=== PATIENT | female | born 1995 | race Caucasian/White ===

== ENCOUNTER → 2016-12-14 | Outpatient (CLI) | payer BC ==
[~2016-12-14] MED LIST: [UNRECOGNIZED DRUG - OTHER] PO
[2016-12-17 07:30] LABS: HEPATITIS BE ANTIBODY TC 556 Nonreactive; VARICELLA ZOS VIR IGG VALUE 1.06 INDEX
== END | disposition home or self-care (01) ==
LOC: C.LABPVFM 13:22
PROVIDERS: ATTEND Nurse Practitioner Family
DX: Z02.0 Encounter for examination for admission to educational institution (principal)

== ENCOUNTER → 2017-02-24 | Outpatient (CLI) | payer BC ==
[2017-02-24 17:37] LABS: BASO % 0.3 %; BASO ABS # 0.03 K/uL (0-0.2); COMPLETE YES; EOS % 1.3 %; IG% 0.2 %; LYMPH % 36.1 %; LYMPH ABS # 3.45 K/uL (1.2-3.4); MEAN CELL VOLUME 82.5 fL (80-100); MEAN CORPUSCULAR HEMOGLOBIN 27.4 pg (25-34); MEAN CORPUSCULAR HGB CONC 33.3 g/dl (32-36); MEAN PLATELET VOLUME 9.2 fL (7.4-10.4); NEUT % 53.1 %; PLATELET COUNT 357 K/uL (130-400); RED BLOOD COUNT 4.85 M/uL (4.2-5.4); WHITE BLOOD COUNT 9.56 K/uL (4.8-10.8)
[2017-02-24 18:02] LABS: ALT/SGPT 19 U/L (12-78); AST/SGOT 12 U/L (15-37); BLOOD UREA NITROGEN 15 mg/dl (7-18); BUN/CREATININE RATIO 19.2 (10-20); CALCIUM 9.1 mg/dl (8.5-10.1); CARBON DIOXIDE 27 mmol/L (21-32); CHLORIDE 106 mmol/L (98-107); CREATININE 0.79 mg/dl (0.60-1.20); GLUCOSE 88 mg/dl (70-99); POTASSIUM 4.1 mmol/L (3.5-5.1); SODIUM 139 mmol/L (136-145)
[2017-02-24 18:13] LABS: ALB/GLOB RATIO 0.8 (0.9-2); ALKALINE PHOSPHATASE 83 U/L (45-117)
--- NOTE | 2017-03-02 12:27 | CODING QUERY MEDICAL NECESSITY ---
CQSUPPORTING DIAGNOSIS NEEDED A supporting diagnosis is required for the test/procedure performed on this patient in order for us to be reimbursed by the patient's insurance. Please provide a supporting diagnosis for the following test/procedure listed below next to the test name along with your signature. *If there is no additional diagnosis for this patient that would support the following test/procedure please document that below next to the test/procedure. Test(s)/Procedure(s) that require a supporting diagnosis: DOS [id number] VITAIN D VITAMIN B12 Provider Signature: Date: Thank you Rosangela Hackett [facility] Information Management Once completed, please kindly fax back to [phone] For questions please call [phone]
== END | disposition home or self-care (01) ==
LOC: C.LABPVFM 16:02
PROVIDERS: ATTEND Neuromusculoskeletal Medicine & OMM
DX: Z00.00 Encounter for general adult medical examination without abnormal findings (principal); R53.83 Other fatigue; R06.83 Snoring

== ENCOUNTER → 2017-08-09 | Outpatient (CLI) | payer BC ==
--- NOTE | 2017-08-09 14:49 | DIAGNOSTIC IMAGING REPORT ---
R FOOT MIN 3 VIEWS CLINICAL HISTORY: Right foot pain. No known injury. COMPARISON: None FINDINGS: Alignment of the right foot is anatomic. The tarsometatarsal joints are intact. No fracture is identified. No osseous lesion is noted. There is no radiographic evidence of a stress fracture. No erosions are identified. IMPRESSION: No significant abnormality within the right foot. Electronically signed by: Roney Varela M.D. 08/09/2017 2:48 PM Dictated Date/Time: 08/09/2017 2:45 PM
== END | disposition home or self-care (01) ==
LOC: C.RDSM 16:22
PROVIDERS: ATTEND Family Medicine
DX: M79.671 Pain in right foot (principal)

== ENCOUNTER → 2017-10-22 | Outpatient (CLI) | payer BC | END | disposition home or self-care (01) | LOC: C.LABPVFM 09:13 | PROVIDERS: ATTEND Family Medicine Adult Medicine | DX: L50.9 Urticaria, unspecified (principal) ==

== ENCOUNTER 2021-04-14 16:30 | Inpatient (IN) ==
--- NOTE | 2021-04-08 17:13 | History and Physical Report ---
DATE OF ADMISSION: 04/17/2021 CHIEF COMPLAINT: Twin intrauterine , previous . HISTORY OF PRESENT ILLNESS: The patient is a 25-year-old 2, para 1. She conceived on Clomid 100 mg daily, day #3 to day #7, was diagnosed in the first trimester with a twin intrauterine . She had her first ultrasound done on 09/24/2020, at which time she had a twin intrauterine of 8 weeks 6 days. Her due date is 04/30/2021. Her obstetrical history is as follow; 4 years ago, she had a long labor and a for cephalopelvic disproportion. Presently being followed in the office, has had several ultrasounds. Initially, the twins were transverse. Within the past month, they have converted both to vertex-vertex presentation. She has recently been experiencing some edema of the lower abdomen and presently being scheduled for a repeat low segment section for twins. ALLERGIES: SHE IS ALLERGIC TO CECLOR, WHICH GIVES HER HIVES. PAST SURGICAL HISTORY: She had a 4 years ago for cephalopelvic disproportion. She has wisdom teeth removed. SOCIAL HISTORY: No smoking. No excessive alcohol intake. Works at [employer]. FAMILY HISTORY: She has a girl, 4 years old. Mother is 40 in good health. Father 46, has diabetes and high blood pressure. She has got 5 half-brothers and sisters are all in good health. REVIEW OF SYSTEMS: HEAD: No symptoms of frequent or severe headaches. EYES: No symptoms of blurred vision or double vision. EARS: No symptoms of frequent ear infection or difficulty hearing. NOSE: No symptoms of frequent nosebleeds or difficulty breathing through her nose. PHYSICAL EXAMINATION: GENERAL: Well-developed, well-nourished 25-year-old white female, alert, oriented x3 and cooperative, in no acute distress, appeared her stated age. EYES: Conjunctivae are pink. Sclerae white, no evidence of jaundice. EARS: Had normal light reflex bilaterally. NOSE: Had normal mucosa. Septum is midline. There were no polyps. THROAT: No erythema or evidence of infection. Teeth are in good state of repair. HEAD: Normocephalic, normal distribution of hair. NECK: Supple. Trachea midline. Thyroid is not enlarged. There is no adenopathy appreciated. Both carotids are of good intensity. CHEST: Clear to auscultation and percussion. No wheezes, rales or rhonchi appreciated. BREASTS: Normal. ABDOMEN: Revealed a well-healed Pfannenstiel incision. There were some pitting edema of the lower abdomen. Uterine size was about 44 cm above the pubic symphysis consistent with twins. No CVA tenderness. MUSCULOSKELETAL: No calf tenderness. PELVIC: Cervix is 3-4 cm dilated, vertex presentation. IMPRESSIONS OF THIS CASE: section for cephalopelvic disproportion, status post removal of wisdom teeth and twin intrauterine in vertex-vertex presentation.
[2021-04-14] MEDS ORDERED: LACTATED RINGER'S 1,000 ML IV SCH (17:45)
[2021-04-14] MEDS ORDERED: CITRIC ACID/SODIUM CITRATE 15 ML UDC PO ONE (18:00)
[2021-04-14] MEDS ORDERED: cefOXitin 2,000 MG in DEXTROSE 5% 50 ML IV ONE (18:00)
[2021-04-14] MEDS ORDERED: LACTATED RINGER'S 500 ML IV PRN (18:30)
[2021-04-14] MEDS ORDERED: DC INTRASPINAL MORPHINE SCH (18:30)
[2021-04-14] MEDS ORDERED: ePHEDrine sulfate 50 MG/ML AMP IV PRN (18:30)
[2021-04-14] MEDS ORDERED: NO NARCOTICS OR SEDATIVES SCH (18:30)
[2021-04-14] MEDS ORDERED: HYDROmorphone INJ 0.5 MG/0.5 ML SYR IV PRN (18:30)
[2021-04-14] MEDS ORDERED: NALOXONE HCL 0.08 MG in SYRINGE 1.8 ML IV PRN (18:30)
[2021-04-14] MEDS ORDERED: MoRPHine SULFATE PF 1 MG/ML 10 ML AMP/VIAL INT SPINAL ONE (18:30)
[2021-04-14] MEDS ORDERED: SODIUM CHLORIDE 0.9% 1000ML 1,000 ML IV SCH (18:30)
[2021-04-14] MEDS ORDERED: ONDANSETRON INJ 2 MG/ML 2 ML VIAL IV PRN (18:30)
[2021-04-14] MEDS ORDERED: diphenhydrAMINE 50 MG/ML VIAL IV PRN ×2 (18:30→20:19)
[2021-04-14] MEDS ORDERED: NALOXONE HCL 1 MG in SODIUM CHLORIDE 0.9% 1000ML 1,000 ML IV PRN (18:30)
[2021-04-14] MEDS ORDERED: NALOXONE HCL 0.4 MG/1 ML VIAL/CARP IV PRN (18:30)
[2021-04-14 18:41] LABS: Hematocrit (blood only) 32.9 % (37-47); Hemoglobin 10.7 g/dL (12.0-16.0); Mean Corpuscular Hemoglobin 27.1 pg (25-34); Mean Corpuscular Volume 83.3 fL (80-100); Mean Platelet Volume 10.5 fL (7.4-10.4); Platelet Count 273 K/uL (130-400); RDW Coefficient of Variation 15.1 % (11.5-14.5); RDW Standard Deviation 46.2 fL (36.4-46.3); Red Blood Count 3.95 M/uL (4.2-5.4); White Blood Count 15.04 K/uL (4.8-10.8)
--- NOTE | 2021-04-14 18:46 | Anesthesiology Consultation ---
Date of Service April 14, 2021 The patient has an allergy of hives to cefaclor. The nurse checked with both the pharmacist and Dr. Kennedy who stated that the patient is okay to receive cefoxitin. Assessment & Plan Chart Review Chart Review: Acceptable Risk for Surgery and Patient NOT seen in Pre Admission Testing Consults Requested none ASA ASA2 Proposed Anesthesia Anesthesia Type: MAC Spinal Risk / Benefits Reviewed With: PT / POA / Parent / Guardian, Accepts Plan and Informed Consent Obtained History Surgery Operation Date: 04/14/21 19:00 Proposed Procedures p Section in LD(Bilateral) - Jeanmarie Kennedy MD Height/Weight Height: 5 ft 2.5 in Weight: 104.78 kg Allergies Allergy/AdvReac Type Severity Reaction Status Date / Time cefaclor Allergy Intermediate HIVES Verified 04/08/21 16:11 Medications Home Medications Medication Instructions Recorded Confirmed Last Taken prenat.vits,amador,pya-rtng-aoesp 1 tab PO DAILY 10/23/20 04/14/21 04/13/21 20:00 [ #2] acetaminophen [Tylenol Extra 1,000 mg PO Q6H PRN 02/23/21 04/14/21 04/12/21 Strength] NPO Date Last Intake of Fluids: 04/14/21 Time Last Intake of Fluids: 17:00 Date Last Intake of Solids: 04/14/21 Time Last Intake of Solids: 12:30 Last Intake of Solids Comment: cristi Past Medical History Medical History Anxiety and depression hx Obesity Exercise / Class Metabolic Activity II 4-5 Yardwork/Stairs/Walk up hill Past Family History Family History Brother Asthma Grandmother (Paternal) Hypertension Mother History of migraine headaches Grandmother (Maternal) History of migraine headaches Aunt History of migraine headaches maternal Other No family history of adverse response to anesthesia Past Surgical History Surgical History delivery delivered x1 H/O wisdom tooth extraction Past Anesthesia History No Hx of Anesthesia Complications and No Family Hx of Anesthesia Complications History of PONV No Hx of PONV and No Hx of Motion Sickness Social History Smoking Status: Never smoker Hx Alcohol Use: No Hx Substance Use: No substance use type: does not use Review of Systems no chest pain or sob Physical Exam Vital Signs Last Vital Signs Temp 36.4 C L 04/14/21 18:11 Pulse 93 H 04/14/21 18:47 Resp 18 04/14/21 18:11 BP 140/85 04/14/21 18:47 Pulse Ox 100 04/14/21 18:46 ENMT Mouth: no TMJ abnormality Thyromental Distance: > or= 3.5 Finger Breadths Mallampati Class: II Neck normal visual inspection Respiratory normal respiratory effort Auscultation: lungs clear to auscultation bilaterally Cardiovascular Rate/Rhythm: regular rate and regular rhythm Musculoskeletal Spine: normal cervical ROM Neurologic moves all extremities Psychiatric Orientation: alert and oriented x 3 Testing Laboratory Results 04/14/21 18:00
[2021-04-14 18:47] LABS: Mean Corpuscular Hgb Conc 32.5 g/dL (32-36)
[2021-04-14] MEDS ORDERED: DIPHTHERIA/TETANUS/PERTUSSIS 0.5 ML SYR/VIAL IM ONE (20:19)
[2021-04-14] MEDS ORDERED: HYDROCORTISONE ACETATE 25 MG SUPP PR PRN (20:19)
[2021-04-14] MEDS ORDERED: SUPERCREAM 0.870% 15 GM JAR EXT PRN (20:19)
[2021-04-14] MEDS ORDERED: SENNA 8.6 MG TAB PO PRN (20:19)
[2021-04-14] MEDS ORDERED: BENZOCAINE 20% AER SPR 82.5 GM CAN EXT PRN (20:19)
[2021-04-14] MEDS ORDERED: MAGNESIUM HYDROXIDE SUSP 30 ML UDC PO PRN (20:19)
--- NOTE | 2021-04-14 20:19 | Post Operative Brief Note ---
Immediate Post Op Note v1 Date of Surgery April 14, 2021 Pre & Post Diagnosis Operation Date: 04/14/21 19:00 Pre-Op Diagnosis: 1. Twins 2. Labor Post-Op Diagnosis: Same as preoperative I identified the patient and participated in the time-out.: Yes Procedure Operation Date: 04/14/21 19:00 Actual Procedures p Section in LD(Bilateral) - Jeanmarie Kennedy MD Surgeon Jeanmarie Kennedy MD Movement Assembly Final Inspector Dr Gallo Estimated Blood Loss 700 Findings Consistent with Post-Op Diagnosis two placentas Specimens two placentas Drains Schulz Catheter Anesthesia Type Spinal Complications none Disposition Accompanied Patient To Recovery: No Disposition: Recovery Room
[2021-04-14] MEDS ORDERED: OXYTOCIN 20 UNITS in D5W AND LACTATED RINGERS 1,000 ML IV SCH (20:30)
[2021-04-14] MEDS: KETOROLAC 30 MG/ML VIAL IV PRN (21:16)
[2021-04-14] MEDS: SIMETHICONE 80 MG CHEW PO SCH (21:29)
--- NOTE | 2021-04-14 22:28 | Anesthesiology Progress Note ---
Date of Service April 14, 2021 Anesthesia Post Procedure Vital Signs Vital Signs: Temp Pulse Resp BP Pulse Ox 04/14/21 22:24 88 145/97 H 99 04/14/21 22:23 88 18 145/97 H 99 04/14/21 22:19 79 99 04/14/21 22:14 80 143/84 H 100 04/14/21 22:09 80 100 04/14/21 22:04 84 136/90 100 04/14/21 22:02 100 H 93 04/14/21 21:59 89 98 04/14/21 21:54 73 153/75 H 100 04/14/21 21:53 75 18 100 04/14/21 21:49 75 100 04/14/21 21:47 82 93 04/14/21 21:44 75 100 04/14/21 21:43 72 144/75 H 04/14/21 21:42 83 91 04/14/21 21:39 80 99 04/14/21 21:34 74 154/80 H 89 L 04/14/21 21:29 96 H 99 04/14/21 21:24 91 H 153/95 H 97 04/14/21 21:23 81 18 91 04/14/21 21:20 81 91 04/14/21 21:19 78 99 04/14/21 21:15 88 90 04/14/21 21:14 88 146/99 H 95 04/14/21 21:13 79 18 146/99 H 04/14/21 21:09 79 100 04/14/21 21:05 74 128/80 04/14/21 21:04 77 100 04/14/21 21:03 74 18 128/80 04/14/21 20:59 75 99 04/14/21 20:54 85 98 04/14/21 20:53 75 20 142/92 H 04/14/21 20:49 80 100 04/14/21 20:44 81 143/84 H 100 04/14/21 20:43 18 04/14/21 20:39 86 100 04/14/21 20:34 92 H 137/86 100 04/14/21 20:33 18 04/14/21 20:29 98 H 100 04/14/21 20:24 91 H 100 04/14/21 20:23 36.4 C L 97 H 20 136/76 04/14/21 18:51 90 100 04/14/21 18:47 93 H 140/85 04/14/21 18:46 92 H 100 04/14/21 18:20 86 141/92 H 04/14/21 18:11 36.4 C L 87 18 141/92 H 04/14/21 17:58 87 141/92 H Pain Intensity Bilateral Abdomen: Pain Intensity: 1 Transfer of Care Handoff Completed per policy Notes Mental Status: alert / awake / arousable Patient Amnestic to Procedure: Yes Nausea / Vomiting: adequately controlled Pain: adequately controlled Airway Patency, RR, SpO2: stable & adequate BP & HR: stable & adequate Hydration State: stable & adequate Neuraxial Anesthesia: was administered and sensory block is resolving Anesthetic Complications: no major complications apparent and Pt Satisfied with anesthetic care
[2021-04-14] MEDS: DOCUSATE SODIUM 100 MG CAP PO SCH (23:08)
[2021-04-15] MEDS ORDERED: LACTATED RINGER'S 1,000 ML IV SCH (04:30)
[2021-04-15 06:32] LABS: Hematocrit (blood only) 28.9 % (37-47); Hemoglobin 9.2 g/dL (12.0-16.0); Mean Corpuscular Hemoglobin 26.5 pg (25-34); Mean Corpuscular Hgb Conc 31.8 g/dL (32-36); Mean Corpuscular Volume 83.3 fL (80-100); Mean Platelet Volume 9.7 fL (7.4-10.4); Platelet Count 225 K/uL (130-400); RDW Coefficient of Variation 15.1 % (11.5-14.5); Red Blood Count 3.47 M/uL (4.2-5.4); White Blood Count 12.64 K/uL (4.8-10.8)
[2021-04-15 07:08] LABS: ALC (manual) 2.64 K/uL (1.2-3.4); ANC (manual) 9.67 K/uL (1.4-6.5); Basophils # (manual) 0.11 K/uL (0-0.2); Basophils % (manual) 0.9 %; Lymphocytes # (manual) 2.64 K/uL (1.2-3.4); Lymphocytes % (manual) 20.9 %; Monocytes # (manual) 0.21 K/uL (0.11-0.59); Monocytes % (manual) 1.7 %; Neutrophils # (manual) 9.67 K/uL (1.4-6.5); Neutrophils % (manual) 76.5 %
[2021-04-15] MEDS: FERROUS SULFATE 325 MG TAB PO SCH (08:01)
[2021-04-15] MEDS: PRENATAL VITAMIN 1 TAB PO SCH (08:01)
[2021-04-15] MEDS: DOCUSATE SODIUM 100 MG CAP PO SCH ×2 (08:01→20:59)
[2021-04-15] MEDS: KETOROLAC 30 MG/ML VIAL IV PRN (08:02)
[2021-04-15] MEDS: SIMETHICONE 80 MG CHEW PO SCH ×4 (08:02→20:59)
--- NOTE | 2021-04-15 08:07 | Operative Report (OR) ---
DATE OF PROCEDURE: 04/14/2021 The patient was admitted with twin intrauterine . PREOPERATIVE DIAGNOSES: Twin intrauterine , vertex-vertex presentation, labor, 37 weeks 5 d ays. INDICATIONS: Twin , vertex-vertex presentation, active labor. PROCEDURE: Repeat low segment section. SURGEON: Leah Kennedy MD ENGAGEMENT MANAGER: Dr. Gallo. ESTIMATED BLOOD LOSS: 700 mL. ANESTHESIA: Spinal. OPERATIVE FINDINGS AND PROCEDURE: The patient was brought to the OR table, correctly identified by a rmband and conversation. Spinal anesthesia was administered. Schulz catheter was inserted. Compress ion stockings were applied. Lower abdomen was painted with an alcohol based sterilizing solution. T he abdomen was taped up to expose the lower uterine segment. Previous scar could be seen on the abdom en and marked with a pen and then I incised over the previous scar. Incision was carried down to the anterior fascia by sharp dissection. Hemostasis was secured by electrocauterization. Fascia was in cised transversely, from the underlying muscle by blunt and sharp dissection. Recti muscle s were in the midline, exposing the peritoneum which was carefully raised and entered. A r etractor was placed into the abdomen and exposed the lower uterine segment, palpated the head. We di d an incision above the vesicouterine fold and pushed the bladder out of the operative field, scored the lower uterine segment and then entered bluntly with scissors. Clear amniotic fluid could be seen coming at this time. Vertex presentation, we delivered the head, delivered the body without difficu lty, suctioned the infant, stripped the cord and then clamped and cut the cord with a single clamp. Second 's head came down. I had to rupture the membranes separately. Once again fluid was cl ear. delivered easily. We stripped the cord, then we clamped the second infant's cord with 2 clamps and suctioned him through the mouth and the nose. Infants were attended to by the pediatrici an who was present and scrubbed at the time of delivery. Following this, cord blood was taken. Both placentas were removed separately without difficulty. Uterine cavity was cleansed with a clean spon ge. The myometrial defect was identified with four ring forceps, 1 at each angle and then one on the top and one on the bottom and the middle. I then did a careful 2-3 layer closure. I approximated t he myometrial layer with a continuous heavy chromic gut suture. I then approximated the fascial laye r over this with a heavy duty Vicryl and then about 3 areas I did an interrupted wodkih-ue-defqg sutu re of Vicryl to finish the approximation of the fascial layer. Following this, hemostasis was excell ent. We did restore the integrity of the vesicouterine fold with a running 3-0 chromic, cleansed the pelvis of all blood clots and debris, reinserted the uterus, tubes, and ovaries into the abdomen, ch ecked to make sure the incision was hemostatic. It was. We cut the sutures. Then, I felt that ther e was a piece of omentum, which was adhered to the undersurface of the previous incision. We cut it away with electrocautery. Then, we did a careful anatomical approximation and approximated the perit oneum with a mattress suture of chromic catgut. Approximated the recti muscles with interrupted figu re-of-eight suture chromic catgut, approximated the fascia with a continuous interlocking suture of V icryl on each side and tied in the midline. Subcutaneous was approximated with running plain. The s kin edges were approximated with staple clips. Job ID: [id number]
--- NOTE | 2021-04-15 09:10 | Obstetrical Progress Note ---
Date of Service April 15, 2021 Assessment & Plan Admission and Anticipated Discharge Date Admission Date: April 14, 2021 Physical Exam Physical Exam: abdomen soft and non tender bowel sounds are present incision is clean and dry no calf tenderness vaginal bleeding scant hgb 9.2 Results & Data ([facility]) Vital Signs (Past 12 Hours) Vital Signs Temp Pulse Pulse Resp BP BP Pulse Ox 04/15/21 07:05 18 96 04/15/21 06:00 18 94 04/15/21 05:00 18 95 04/15/21 04:10 36.8 C 82 18 135/89 99 04/15/21 04:00 18 99 04/15/21 03:00 18 96 04/15/21 02:00 18 97 04/15/21 01:00 18 95 04/15/21 00:05 79 18 125/85 98 04/15/21 00:00 18 98 04/14/21 22:55 36.8 C 79 18 132/82 98 04/14/21 22:41 83 133/83 04/14/21 22:39 83 100 04/14/21 22:34 86 149/93 H 99 04/14/21 22:29 82 97 04/14/21 22:24 88 145/97 H 99 04/14/21 22:23 88 18 145/97 H 99 04/14/21 22:19 79 99 04/14/21 22:14 80 143/84 H 100 04/14/21 22:09 80 100 04/14/21 22:04 84 136/90 100 04/14/21 22:02 100 H 93 04/14/21 21:59 89 98 04/14/21 21:54 73 153/75 H 100 04/14/21 21:53 75 18 100 04/14/21 21:49 75 100 04/14/21 21:47 82 93 04/14/21 21:44 75 100 04/14/21 21:43 72 144/75 H 04/14/21 21:42 83 91 04/14/21 21:39 80 99 04/14/21 21:34 74 154/80 H 89 L 04/14/21 21:29 96 H 99 04/14/21 21:24 91 H 153/95 H 97 04/14/21 21:23 81 18 91 04/14/21 21:20 81 91 04/14/21 21:19 78 99 04/14/21 21:15 88 90 04/14/21 21:14 88 146/99 H 95 04/14/21 21:13 79 18 146/99 H 04/14/21 21:09 79 100
[2021-04-15] MEDS ORDERED: ONDANSETRON INJ 2 MG/ML 2 ML VIAL IV PRN (12:30)
[2021-04-15] MEDS ORDERED: PROMETHAZINE HCL 25 MG in SODIUM CHLORIDE 0.9% 50 ML IV PRN (12:30)
[2021-04-15] MEDS ORDERED: ZOLPIDEM TARTRATE 5 MG TAB PO PRN (12:30)
[2021-04-15] MEDS ORDERED: MEPERIDINE HCL 50 MG/ML CARP IV PRN (12:30)
[2021-04-15] MEDS ORDERED: diphenhydrAMINE 50 MG/ML VIAL IV PRN (12:30)
[2021-04-15] MEDS ORDERED: KETOROLAC 30 MG/ML VIAL IV PRN (12:30)
[2021-04-15] MEDS ORDERED: diphenhydrAMINE Capsule 25 MG CAP PO PRN (12:30)
[2021-04-15] MEDS: IBUPROFEN 600 MG TAB PO PRN ×3 (13:08→22:43)
[2021-04-15] MEDS ORDERED: Nursing to Pharmacy Communication SCH (16:15)
[2021-04-15] MEDS: oxyCODONE/ACETAMINOPHEN 5mg/325mg TAB PO PRN ×2 (17:45→22:43)
--- NOTE | 2021-04-15 19:29 | Anesthesiology Progress Note ---
Date of Service April 15, 2021 Anesthesia Post Procedure Vital Signs Vital Signs: Temp Pulse Pulse Pulse Resp BP BP 04/15/21 15:40 36.6 C 100 H 20 115/81 04/15/21 12:40 36.7 C 91 H 21 04/15/21 11:10 22 04/15/21 10:00 20 04/15/21 09:00 21 04/15/21 07:45 36.7 C 100 H 21 04/15/21 07:05 18 04/15/21 06:00 18 04/15/21 05:00 18 04/15/21 04:10 36.8 C 82 18 135/89 04/15/21 04:00 18 04/15/21 03:00 18 04/15/21 02:00 18 04/15/21 01:00 18 04/15/21 00:05 79 18 125/85 04/15/21 00:00 18 04/14/21 22:55 36.8 C 79 18 132/82 04/14/21 22:41 83 133/83 04/14/21 22:39 83 04/14/21 22:34 86 149/93 H 04/14/21 22:29 82 04/14/21 22:24 88 145/97 H 04/14/21 22:23 88 18 145/97 H 04/14/21 22:19 79 04/14/21 22:14 80 143/84 H 04/14/21 22:09 80 04/14/21 22:04 84 136/90 04/14/21 22:02 100 H 04/14/21 21:59 89 04/14/21 21:54 73 153/75 H 04/14/21 21:53 75 18 04/14/21 21:49 75 04/14/21 21:47 82 04/14/21 21:44 75 04/14/21 21:43 72 144/75 H 04/14/21 21:42 83 04/14/21 21:39 80 04/14/21 21:34 74 154/80 H 04/14/21 21:29 96 H 04/14/21 21:24 91 H 153/95 H 04/14/21 21:23 81 18 04/14/21 21:20 81 04/14/21 21:19 78 06/14/21 21:15 88 04/14/21 21:14 88 146/99 H 04/14/21 21:13 79 18 146/99 H 04/14/21 21:09 79 04/14/21 21:05 74 128/80 04/14/21 21:04 77 04/14/21 21:03 74 18 128/80 04/14/21 20:59 75 04/14/21 20:54 85 04/14/21 20:53 75 20 142/92 H 04/14/21 20:49 80 04/14/21 20:44 81 143/84 H 04/14/21 20:43 18 04/14/21 20:39 86 04/14/21 20:34 92 H 137/86 04/14/21 20:33 18 04/14/21 20:29 98 H 04/14/21 20:24 91 H 04/14/21 20:23 36.4 C L 97 H 20 136/76 BP Pulse Ox 04/15/21 15:40 96 04/15/21 12:40 115/79 97 04/15/21 11:10 98 04/15/21 10:00 96 04/15/21 09:00 97 04/15/21 07:45 130/86 96 04/15/21 07:05 96 04/15/21 06:00 94 04/15/21 05:00 95 04/15/21 04:10 99 04/15/21 04:00 99 04/15/21 03:00 96 04/15/21 02:00 97 04/15/21 01:00 95 04/15/21 00:05 98 04/15/21 00:00 98 04/14/21 22:55 98 04/14/21 22:41 04/14/21 22:39 100 04/14/21 22:34 99 04/14/21 22:29 97 04/14/21 22:24 99 04/14/21 22:23 99 04/14/21 22:19 99 04/14/21 22:14 100 04/14/21 22:09 100 04/14/21 22:04 100 04/14/21 22:02 93 04/14/21 21:59 98 04/14/21 21:54 100 04/14/21 21:53 100 04/14/21 21:49 100 04/14/21 21:47 93 04/14/21 21:44 100 04/14/21 21:43 04/14/21 21:42 91 04/14/21 21:39 99 04/14/21 21:34 89 L 04/14/21 21:29 99 04/14/21 21:24 97 04/14/21 21:23 91 04/14/21 21:20 91 04/14/21 21:19 99 04/14/21 21:15 90 04/14/21 21:14 95 04/14/21 21:13 04/14/21 21:09 100 04/14/21 21:05 04/14/21 21:04 100 04/14/21 21:03 04/14/21 20:59 99 04/14/21 20:54 98 04/14/21 20:53 04/14/21 20:49 100 04/14/21 20:44 100 04/14/21 20:43 04/14/21 20:39 100 04/14/21 20:34 100 04/14/21 20:33 04/14/21 20:29 100 04/14/21 20:24 100 04/14/21 20:23 Pain Intensity Bilateral Abdomen: Pain Intensity: 1 Transfer of Care Handoff Completed per policy Notes Mental Status: alert / awake / arousable and participated in evaluation Nausea / Vomiting: adequately controlled Pain: adequately controlled Airway Patency, RR, SpO2: stable & adequate BP & HR: stable & adequate Hydration State: stable & adequate Neuraxial Anesthesia: was administered and sensory block resolved Anesthetic Complications: no major complications apparent and Pt Satisfied with anesthetic care
[2021-04-15] MEDS ORDERED: bisacodyL 5 MG TABEC PO SCH (20:00)
[2021-04-16] MEDS: oxyCODONE/ACETAMINOPHEN 5mg/325mg TAB PO PRN ×3 (03:50→11:55)
[2021-04-16] MEDS: IBUPROFEN 600 MG TAB PO PRN ×3 (03:50→11:54)
--- NOTE | 2021-04-16 06:37 | Obstetrical Progress Note ---
Date of Service April 16, 2021 Assessment & Plan Admission and Anticipated Discharge Date Admission Date: April 14, 2021 Physical Exam Physical Exam: abdomen soft and non tender incision is clean and dry passing flatus no calf tenderness ambulating well vaginal bleeding scant hgb 9.2 Results & Data ([facility]) Vital Signs (Past 12 Hours) Vital Signs Temp Pulse Resp BP BP Pulse Ox 04/15/21 23:00 36.4 C L 84 18 121/68 97 04/15/21 19:27 36.4 C L 90 18 111/72 97
[2021-04-16 06:55] LABS: Hematocrit (blood only) 25.4 % (37-47); Hemoglobin 8.5 g/dL (12.0-16.0)
[2021-04-16] MEDS: DOCUSATE SODIUM 100 MG CAP PO SCH (07:16)
[2021-04-16] MEDS: SIMETHICONE 80 MG CHEW PO SCH ×2 (07:16→12:19)
[2021-04-16] MEDS: PRENATAL VITAMIN 1 TAB PO SCH (07:16)
[2021-04-16] MEDS: FERROUS SULFATE 325 MG TAB PO SCH (07:16)
--- NOTE | 2021-04-16 11:19 | Discharge Summary (DS) ---
DATE OF DISCHARGE: 04/16/2021. HOSPITAL COURSE: She is a 2, para 3. Blood type is O positive, group B strep negative. She is followed in our office for care and delivery, had a previous for cephalopelvic disproportion. She was diagnosed earlier in her with twin gestation. She was carefully f ollowed in the office. She had several ultrasounds, initially the twins were in transverse position. They later converted to vertex-vertex and she did well at 37 weeks and 5 days gestation. She went into spontaneous labor, called the office, she has been having contractions every 5-10 minutes for se veral hours, and came to maternity and was placed on the monitor, was documented to have a good labor pattern with painful contractions. She was diagnosed as being in labor and underwent repeat low seg ment section. Surgery was performed without difficulty. Blood loss at the time was about 7 00 mL. Her preoperative hemoglobin was 10.7. Postoperatively, hemoglobin fell to 9.2. Postoperative ly, she did well. Her bowel sounds returned within 24 hours. The bandage was removed. Incision rem ained clean and dry. On the second postoperative day, she was ambulating well, eating well and reque sted discharge. She was discharged with the usual instructions given prescriptions for Pe rcocet and Motrin and told to return to the office for removal of the frankie and to call if she had any problems. Job ID: [id number]
[2021-04-16] MEDS ORDERED: bisacodyL 10 MG SUPP PR PRN (20:19)
== END 2021-04-16 13:00 | disposition home or self-care (01) | DRG 788 ==
LOC: OPB 16:30 → 4S1 17:38 → 4S2 23:15

== ENCOUNTER 2022-09-14 05:33 | Inpatient (IN) ==
--- NOTE | 2022-09-08 13:54 | Anesthesiology Consultation ---
Date of Service September 08, 2022 Assessment & Plan (1) Encounter for pre-operative examination: COVID screening: Per assessment on 09/08: No known COVID-19 positive contacts. Travel screen negative. Patient vaccinated. Patient has symptoms of fever, cough, congestion/runny nose. Patient had Covid test done 09/07 which was negative (her daughter tested positive for influenza 09/07). Patient seen by Dr. Kennedy 09/08/22- per his note "She did end up with a cough and a low-grade fever. One of her children tested positive for influenza. Her symptoms started on 09/05/2022.. Clear to auscultation and percussion. No wheezes, rales or rhonchi appreciated." OB wishes to proceed with as scheduled 09/14/22. Will contact patient for symptoms update in a few days. Chart Review Chart Review: entry level staff accountant initiated History Surgery Operation Date: 09/14/22 07:30 Proposed Procedures p Repeat Section in LD - Jeanmarie Buffy Kennedy MD Height/Weight Height: 5 ft 2 in Weight: 98.883 kg Allergies Allergy/AdvReac Type Severity Reaction Status Date / Time cefaclor Allergy Intermediate HIVES Verified 09/08/22 13:10 Medications Home Medications Medication Instructions Recorded Confirmed Last Taken vit no.95-ferrous 1 tab PO QPM 09/08/22 09/08/22 Unknown fumarate 28 mg-folic acid 800 mcg tablet () Past Medical History Medical History Anxiety and depression History of COVID-19 06/03/2022- fatigue, fever, nausea, SOB, runny nose, cough Obesity Past Family History Family History Brother Asthma Grandmother (Paternal) Hypertension Mother History of migraine headaches Grandmother (Maternal) History of migraine headaches Aunt History of migraine headaches maternal Other No family history of adverse response to anesthesia Past Surgical History Surgical History delivery delivered x2 H/O wisdom tooth extraction Social History Smoking Status: Never smoker Do You Dip or Chew Tobacco: No Hx Alcohol Use: No Hx Substance Use: No substance use type: does not use
[2022-09-14] MEDS ORDERED: LACTATED RINGER'S 1,000 ML IV SCH ×2 (05:45→09:15)
[2022-09-14] MEDS ORDERED: cefOXitin 2,000 MG in DEXTROSE 5% 50 ML IV SCH (06:00)
[2022-09-14] MEDS ORDERED: CITRIC ACID/SODIUM CITRATE 15 ML UDC PO SCH (06:00)
[2022-09-14] MEDS ORDERED: SODIUM CHLORIDE 0.9% 250 ML IV PRN (06:01)
[2022-09-14] MEDS ORDERED: FLUARIX QUADRIVALENT 0.5 ML SYR IM ONE (06:01)
[2022-09-14 06:22] LABS: Basophils # (auto) 0.06 K/uL (0-0.2); Basophils % (auto) 0.5 %; Eosinophils # (auto) 0.03 K/uL (0-0.50); Eosinophils % (auto) 0.3 %; Hematocrit (blood only) 30.9 % (34.1-44.9); Hemoglobin 10.1 g/dl (12.0-16.0); Immature Granulocytes # (auto) 0.51 K/uL (0.00-0.02); Immature Granulocytes % (auto) 4.6 %; Lymphocytes # (auto) 3.69 K/uL (1.2-3.4); Lymphocytes % (auto) 33.1 %; Mean Corpuscular Hemoglobin 26.3 pg (25.0-34.0); Mean Corpuscular Hgb Conc 32.7 g/dL (32.0-36.0); Mean Corpuscular Volume 80.5 fL (80.0-100.0); Mean Platelet Volume 9.6 fL (9.4-12.3); Monocytes # (auto) 0.66 K/uL (0.24-0.82); Monocytes % (auto) 5.9 %; Neutrophils # (auto) 6.21 K/uL (1.4-6.5); Neutrophils % (auto) 55.6 %; Platelet Count 266 K/uL (130-400); RDW Coefficient of Variation 15.3 % (11.5-14.5); RDW Standard Deviation 44.3 fL (36.4-46.3); Red Blood Count 3.84 M/uL (3.93-5.22); White Blood Count 11.16 K/ul (4.8-10.8)
[2022-09-14 06:39] LABS: INR 0.9 (0.9-1.1); Partial Thromboplastin Ratio 0.9; Partial Thromboplastin Time 23.6 Seconds (21.0-31.0)
[2022-09-14 06:49] LABS: Anion Gap 7 (3-11); BUN Creatinine Ratio 12.8 (10-20); Blood Urea Nitrogen 6 mg/dl (6-23); Calcium 8.3 mg/dl (8.5-10.1); Carbon Dioxide 23 mmol/L (21-32); Chloride 108 mmol/L (98-107); Creatinine Clr Calc Pharmacy 205.1 ml/min; Est GFR (African American) > 150.0 ml/min; Est GFR (Non-African American) 137.3 ml/min; Glucose 93 mg/dl (70-99(Fasting)); Potassium 3.5 mmol/L (3.5-5.1); Sodium 138 mmol/L (136-145)
[2022-09-14] MEDS ORDERED: NALBUPHINE HCL INJ 10 MG/ML AMP IV PRN (07:32)
[2022-09-14] MEDS ORDERED: diphenhydrAMINE 50 MG/ML VIAL IV PRN (07:32)
[2022-09-14] MEDS ORDERED: HYDROmorphone INJ 0.5 MG/0.5 ML SYR IV PRN (07:32)
[2022-09-14] MEDS ORDERED: ePHEDrine sulfate 50 MG/ML AMP IV PRN (07:32)
[2022-09-14] MEDS ORDERED: LACTATED RINGER'S 500 ML IV PRN (07:32)
[2022-09-14] MEDS ORDERED: NALOXONE HCL 0.4 MG/1 ML VIAL/CARP IV PRN (07:32)
[2022-09-14] MEDS ORDERED: MoRPHine SULFATE PF 1 MG/ML 10 ML AMP/VIAL INT SPINAL ONE (07:32)
[2022-09-14] MEDS ORDERED: ONDANSETRON INJ 2 MG/ML 2 ML VIAL IV PRN (07:32)
[2022-09-14] MEDS ORDERED: NALOXONE HCL 1 MG in SODIUM CHLORIDE 0.9% 1000ML 1,000 ML IV PRN (07:32)
[2022-09-14] MEDS ORDERED: NALOXONE HCL 0.08 MG in SYRINGE 1.8 ML IV PRN (07:32)
[2022-09-14] MEDS ORDERED: MoRPHine SULFATE PF 1 MG/ML 10 ML AMP/VIAL ONE (07:36)
[2022-09-14] MEDS ORDERED: fentaNYL citrate 100 MCG/2 ML VIAL ONE (07:36)
[2022-09-14] MEDS ORDERED: OXYTOCIN 10 UNITS/ML 10ML VIAL ONE ×2 (07:37→08:08)
[2022-09-14] MEDS ORDERED: DC INTRASPINAL MORPHINE SCH (07:45)
[2022-09-14] MEDS ORDERED: NO NARCOTICS OR SEDATIVES SCH (07:45)
[2022-09-14] MEDS ORDERED: SODIUM CHLORIDE 0.9% 1000ML 1,000 ML IV SCH (07:45)
[2022-09-14] MEDS ORDERED: PHENYLEPHRINE 100MCG/ML 5ML SYR ONE (07:50)
[2022-09-14] MEDS ORDERED: ONDANSETRON INJ 2 MG/ML 2 ML VIAL ONE (08:04)
--- NOTE | 2022-09-14 09:09 | Post Operative Brief Note ---
Immediate Post Op Note v1 Date of Surgery September 14, 2022 Pre & Post Diagnosis Operation Date: 09/14/22 07:30 Pre-Op Diagnosis: Intrauterine , repeat section, 39 weeks Post-Op Diagnosis: Intrauterine , repeat section, 39 weeks I identified the patient and participated in the time-out.: Yes Procedure Operation Date: 09/14/22 07:30 Actual Procedures p Repeat Section in LD for delivery of live male child at 0810(Bilateral) - Jeanmarie Kennedy MD Surgeon Jeanmarie Kennedy MD Underwriter nurse photographer's assistant Estimated Blood Loss 400 Findings Consistent with Post-Op Diagnosis normal tubes and ovaries Drains Schulz Catheter (Inserted after spinal anesthesia and draining clear yellow urine. ) Anesthesia Type Spinal Complications none
[2022-09-14] MEDS ORDERED: BENZOCAINE 20% AER SPR 82.5 GM CAN EXT PRN (09:10)
[2022-09-14] MEDS ORDERED: SENNA 8.6 MG TAB PO PRN (09:10)
[2022-09-14] MEDS ORDERED: HYDROCORTISONE ACETATE 25 MG SUPP PR PRN (09:10)
[2022-09-14] MEDS ORDERED: DIPHTHERIA/TETANUS/PERTUSSIS 0.5 ML SYR/VIAL IM ONE (09:10)
[2022-09-14] MEDS ORDERED: MAGNESIUM HYDROXIDE SUSP 30 ML UDC PO PRN (09:10)
--- NOTE | 2022-09-14 09:20 | Anesthesiology Progress Note ---
Date of Service September 14, 2022 Anesthesia Post Procedure Vital Signs Vital Signs: Temp Pulse Resp BP Pulse Ox 09/14/22 05:47 36.5 C 18 09/14/22 09:19 76 96 09/14/22 09:14 85 97 09/14/22 09:10 85 107/62 91 09/14/22 07:34 105 H 98 09/14/22 07:29 100 H 98 09/14/22 05:43 36.5 C 96 H 18 136/85 Transfer of Care Handoff Completed per policy Notes Mental Status: alert / awake / arousable Patient Amnestic to Procedure: Yes Nausea / Vomiting: adequately controlled Pain: adequately controlled Airway Patency, RR, SpO2: stable & adequate BP & HR: stable & adequate Hydration State: stable & adequate Neuraxial Anesthesia: was administered and sensory block is resolving Anesthetic Complications: no major complications apparent and Pt Satisfied with anesthetic care
[2022-09-14] MEDS ORDERED: OXYTOCIN 10 UNITS/ML 10ML VIAL IM ONE (09:33)
--- NOTE | 2022-09-14 09:40 | Operative Report (OR) ---
DATE OF PROCEDURE: 09/14/2022 PROCEDURE: Repeat low segment section. INDICATIONS FOR SURGERY: Two previous sections. PREOPERATIVE DIAGNOSIS: Prior C-sections, intrauterine , 39+ weeks' gestation. POSTOPERATIVE DIAGNOSES: Prior C-sections, intrauterine , 39+ weeks' gestation. Delivered live male . SURGEON: Leah Kennedy MD. ESTIMATED BLOOD LOSS: 400 mL ANESTHESIA: Spinal. OPERATIVE FINDINGS AND PROCEDURE: The patient was brought to the OR table, correctly identified by a rmband and conversation. Spinal anesthesia was administered. The patient was placed on the OR table . Lower abdomen was painted with an alcohol based sterilizing solution and draped in the usual steri le fashion. Pfannenstiel incision was made through a previous scar, was carried down to the anterior fascia by sharp dissection. Hemostasis was secured by electrocauterization. Fascia was incised tra nsversely from underlying muscle by blunt and sharp dissection. Recti muscles were separa corey in the midline, exposing the peritoneum, was carefully raised and entered. Lower uterine segment was exposed. Incision was made above the vesicouterine fold. The lower uterine segment was scored with a knife and entered bluntly with the scissors. Clear amniotic fluid was obtained at this time. The toggle press operator's hand was inserted into the uterine cavity and with fundal pressure, a live male was delivered via direct occiput anterior position. Infant was suctioned through the mouth and the nose. Cord was allowed to pulse for 1 minute, then clamped and cut. The was handed off to [facility] security officer. Following this, cord blood was taken. Placenta was removed manually. Uterus, tubes , and ovaries were brought out through the incision. Uterine cavity was cleansed with a clean sponge . A 10 units of Pitocin was injected into the myometrium. The myometrium was then approximated in l [place]. The muscular layer was approximated with a running heavy duty Vicryl and a horizontal stitch was placed with a heavy duty Vicryl to approximate the fascial layer over this and then it was bolste red with interrupted [id number] sutures of heavy duty Vicryl to bring together the lower uterine segment to make sure there were no thin areas. The peritoneal edges were restored over this with a 3-0 chromic. Then, there was one [id number] suture placed in the middle due to some bleeding. Following this, uterine pelvis was cleansed of all blood clots and debris. Uterus, tubes, and ovarie s were reinserted into the abdominal cavity. Careful anatomical approximation of the anterior abdomi nal wall was performed. The peritoneum was closed with continuous chromic gut suture. Recti muscles were approximated with interrupted [id number] suture chromic catgut. Fascia was approximated w ith a running heavy duty Vicryl, subcutaneous was approximated with a running plain. The skin edges were approximated with staple clips. The patient tolerated the procedure well and left the OR in goo d condition. Job ID: [id number]
[2022-09-14] MEDS ORDERED: OXYTOCIN 20 UNITS in LACTATED RINGER'S 1,000 ML IV SCH (12:45)
[2022-09-14] MEDS: SIMETHICONE 80 MG CHEW PO SCH ×3 (13:06→20:20)
[2022-09-14] MEDS: KETOROLAC 30 MG/ML VIAL IV PRN ×2 (13:44→21:51)
[2022-09-14] MEDS: DOCUSATE SODIUM 100 MG CAP PO SCH (20:20)
[2022-09-15] MEDS ORDERED: ZOLPIDEM TARTRATE 5 MG TAB PO PRN (01:33)
[2022-09-15] MEDS ORDERED: MEPERIDINE HCL 50 MG/ML CARP IV PRN (01:33)
[2022-09-15] MEDS ORDERED: KETOROLAC 30 MG/ML VIAL IV PRN (01:33)
[2022-09-15] MEDS ORDERED: PROMETHAZINE HCL 25 MG in SODIUM CHLORIDE 0.9% 50 ML IV PRN (01:33)
[2022-09-15] MEDS ORDERED: diphenhydrAMINE Capsule 25 MG CAP PO PRN (01:33)
[2022-09-15] MEDS ORDERED: oxyCODONE/ACETAMINOPHEN 5mg/325mg TAB PO PRN (01:33)
[2022-09-15] MEDS ORDERED: diphenhydrAMINE 50 MG/ML VIAL IV PRN (01:33)
[2022-09-15] MEDS ORDERED: ONDANSETRON INJ 2 MG/ML 2 ML VIAL IV PRN (01:33)
[2022-09-15 06:30] LABS: Basophils # (auto) 0.06 K/uL (0-0.2); Basophils % (auto) 0.5 %; Eosinophils # (auto) 0.13 K/uL (0-0.50); Hematocrit (blood only) 30.1 % (34.1-44.9); Hemoglobin 9.8 g/dl (12.0-16.0); Immature Granulocytes # (auto) 0.34 K/uL (0.00-0.02); Immature Granulocytes % (auto) 2.7 %; Lymphocytes # (auto) 2.61 K/uL (1.2-3.4); Lymphocytes % (auto) 20.8 %; Mean Corpuscular Hemoglobin 26.6 pg (25.0-34.0); Mean Corpuscular Hgb Conc 32.6 g/dL (32.0-36.0); Mean Corpuscular Volume 81.6 fL (80.0-100.0); Mean Platelet Volume 9.7 fL (9.4-12.3); Monocytes # (auto) 0.67 K/uL (0.24-0.82); Monocytes % (auto) 5.3 %; Neutrophils # (auto) 8.76 K/uL (1.4-6.5); Neutrophils % (auto) 69.7 %; Platelet Count 322 K/uL (130-400); RDW Coefficient of Variation 15.4 % (11.5-14.5); Red Blood Count 3.69 M/uL (3.93-5.22); White Blood Count 12.57 K/ul (4.8-10.8)
[2022-09-15] MEDS: IBUPROFEN 600 MG TAB PO PRN ×4 (06:47→20:45)
[2022-09-15] MEDS: SIMETHICONE 80 MG CHEW PO SCH ×4 (07:58→20:45)
[2022-09-15] MEDS: PRENATAL VITAMIN 1 TAB PO SCH (07:58)
[2022-09-15] MEDS: FERROUS SULFATE 325 MG TAB PO SCH (07:58)
[2022-09-15] MEDS: DOCUSATE SODIUM 100 MG CAP PO SCH ×2 (07:58→20:45)
--- NOTE | 2022-09-15 09:08 | Obstetrical Progress Note ---
Date of Service September 15, 2022 Assessment & Plan Admission and Anticipated Discharge Date Admission Date: September 14, 2022 Subjective abdomen soft and non tender incision is clean and dry no calf tenderness passing flatus vaginal bleeding scant hgb 9.8 Results & Data ([facility]) Vital Signs (Past 12 Hours) Vital Signs Temp Pulse Pulse Resp BP Pulse Ox O2 Del Method 09/15/22 07:35 36.8 C 75 18 113/75 97 Room Air 09/15/22 04:05 36.7 C 92 H 16 102/68 94 Room Air 09/15/22 01:15 16 98 09/15/22 00:15 15 99 09/15/22 01:35 36.7 C 83 15 106/72 97 Room Air 09/14/22 23:15 15 97 09/14/22 22:15 16 99 09/14/22 21:15 16 97
[2022-09-15] MEDS ORDERED: NURSING DECISION MEDICATION ONE (15:31)
[2022-09-15] MEDS ORDERED: COUGH DROP (SUGAR FREE) LOZ 24 LOZ/1 BOX BUCCAL PRN (15:34)
[2022-09-15] MEDS ORDERED: COUGH DROP (SUGAR FREE) LOZ 24 LOZ/1 BOX BUCCAL ONE (15:38)
[2022-09-15] MEDS ORDERED: bisacodyL 5 MG TABEC PO SCH (20:00)
[2022-09-16] MEDS: ACETAMINOPHEN 325 MG TAB PO PRN ×2 (00:39→05:21)
[2022-09-16] MEDS: IBUPROFEN 600 MG TAB PO PRN ×3 (00:39→10:32)
[2022-09-16 06:52] LABS: Hematocrit (blood only) 28.1 % (34.1-44.9); Hemoglobin 9.1 g/dl (12.0-16.0)
--- NOTE | 2022-09-16 08:03 | Obstetrical Progress Note ---
Date of Service September 16, 2022 Assessment & Plan Admission and Anticipated Discharge Date Admission Date: September 14, 2022 Subjective abdomen soft and non tender incision is clean and dry no calf tenderness ambulating well vaginal bleeding scant hgb 9.1 Results & Data ([facility]) Vital Signs (Past 12 Hours) Vital Signs Temp Pulse Resp BP Pulse Ox Pulse Ox O2 Del Method 09/16/22 07:20 36.9 C 79 18 110/74 95 Room Air 09/16/22 01:00 36.6 C 78 18 112/76 95 Room Air 09/15/22 20:30 36.5 C 82 18 118/79 97 Room Air 09/15/22 20:30 97 O2 Del Method 09/16/22 07:20 09/16/22 01:00 09/15/22 20:30 09/15/22 20:30 Room Air
[2022-09-16] MEDS: DOCUSATE SODIUM 100 MG CAP PO SCH (08:21)
[2022-09-16] MEDS: PRENATAL VITAMIN 1 TAB PO SCH (08:21)
[2022-09-16] MEDS: SIMETHICONE 80 MG CHEW PO SCH (08:21)
[2022-09-16] MEDS: FERROUS SULFATE 325 MG TAB PO SCH (08:21)
[2022-09-16] MEDS ORDERED: bisacodyL 10 MG SUPP PR PRN (09:10)
--- NOTE | 2022-09-16 22:49 | Discharge Summary (DS) ---
HOSPITAL COURSE: Mrs. Garcia was admitted the day of surgery for repeat low segment section. She had an uneventful course. Her gestation was 39 weeks and 1 day at the time of surgery . She had had 2 previous sections, one for a cephalopelvic disproportion and one for twins. Her preoperative hemoglobin was 10.1, postoperatively dropped to 9.1. The day of admission, she un derwent repeat low segment section. Surgery went well. Estimated blood loss was only about 400 mL. Her bowel sounds returned within 24 hours. By the following morning, she was on a full t and she started to ambulate, bandage was removed. At the time of discharge, which was day 2 post s urgery, she was ambulating well, eating well. Hemoglobin had fallen from 10.1 to 9.1. She was given instructions to call if she had a temperature over 100 or any heavy bleeding, told to take vitamins, supplemental iron and calcium while she breastfeeds. Told to call if she had a temperature over 100 or heavy bleeding. Also told to come back in a week for removal of frankie. Job ID: [id number]
== END 2022-09-16 11:10 | disposition home or self-care (01) | DRG 788 ==
LOC: 4S1 05:33 → EDSTATUS 07:30 → 4E2 12:10